=== PATIENT | male | born 1990 | race Caucasian/White ===

== ENCOUNTER 2020-02-03 07:01 | Emergency (ER) | payer OTHER, SELFPAY ==
[2020-02-03 07:11] VITALS: BP 126/73; PULSE 95; RESP 18; TEMP 36.6; O2SAT 100
--- NOTE | 2020-02-03 07:22 | ED.ALLEREA ---
HPI - Allergic Reaction General Chief complaint: Allergic Reaction Stated complaint: allergic reaction - bee sting Time Seen by Provider: 02/03/20 07:05 History of Present Illness HPI narrative: Wasp Sting on his upper back about 30 minutes ago. He has had a small amount of swelling to the area. 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 Usually reacts quickly. Does not feel like this is the same. Related Data Allergies Allergy/AdvReac Type Severity Reaction Status Date / Time bee venom protein (honey bee) Allergy Anaphylaxis Verified 02/03/20 07:18 tamsulosin [From Flomax] Allergy Anaphylaxis Verified 02/03/20 07:18 Review of Systems Review of Systems: All systems reviewed & are unremarkable except as noted in HPI and below PMFSH Past Medical History Medical History (Updated 02/03/20 @ 08:47 by Abdulaziz Daniel MD) Anaphylactic reaction Social History Social History Gender identity (if verbalized by the patient): Male Exam Const: General: healthy appearing, no acute distress and alert Orientation/consciousness: patient oriented x3 HENMT: Head: normal to inspection Neck: Neck: normal visual inspection and no lymphadenopathy Chest: Chest palpation & inspection: no tenderness Resp: Effort & Inspection: normal respiratory effort Auscultation: clear to auscultation bilaterally, no rales, no rhonchi and no wheezes Cardio: Jugular venous distension: no JVD Rate: regular rate Rhythm: regular rhythm Heart sounds: no murmurs Skin: Other: 10 cm area hyperemia and edema with small central puncture. No stinger. No additional rash or wound. Neuro: General: patient oriented x3 and moves all extremities Speech: normal speech Extrem: General: normal to inspection Psych: Appearance: grossly normal and well kempt Affect: normal affect Attitude: cooperative Course Vital Signs Vital signs: Vital Signs Temperature 36.6 C 02/03/20 07:11 Pulse Rate 95 02/03/20 07:11 Respiratory Rate 18 02/03/20 07:11 Blood Pressure 126/73 02/03/20 07:11 Pulse Oximetry 100 02/03/20 07:11 Temperature 36.6 C 02/03/20 07:11 Pulse Rate 59 L 02/03/20 08:51 Respiratory Rate 16 02/03/20 08:51 Blood Pressure 96/65 L 02/03/20 08:51 Pulse Oximetry 98 02/03/20 08:51 MDM - Allergic Reaction MDM Narrative Medical decision making narrative: Symptoms are minimal without rapid progression. I will treat conservatively and observe. Symptoms improving. I will provide a short course of steroids and a new prescription for an epipen. Medical Records Attestation: I reviewed the patient's medical records. Lab Data Attestation: I reviewed the patient's lab results. Discharge Plan Discharge Clinical Impression: Accidental wasp sting Patient Disposition: Home, Self-Care Condition: Stable Instructions: Insect Bite or Sting (ED) Prescriptions: New prednisone 20 mg tablet 20 mg PO DAILY Qty: 4 RF: 0 epinephrine [EpiPen 2-Aramis] 0.3 mg/0.3 mL auto-injector 0.3 mg IM ONCE Qty: 1 RF: 0 Follow-up/Referrals: PHYSICIAN,SEE SUPERVISOR [Primary Care Provider] - Discharge Date/Time: 02/03/20 08:52
[2020-02-03] MEDS: diphenhydrAMINE HCl CAP 25 MG CAPSULE PO (07:50)
[2020-02-03] MEDS: predniSONE 20 MG TABLET PO (07:50)
[2020-02-03 07:51] VITALS: BP 106/70; PULSE 67; RESP 18; O2SAT 97
[2020-02-03 08:28] VITALS: BP 112/80; PULSE 62; RESP 18; O2SAT 98
[2020-02-03 08:51] VITALS: BP 96/65; PULSE 59; RESP 16; O2SAT 98
== END 2020-02-03 08:52 | disposition home or self-care (01) ==
PROVIDERS: Emergency Provider Emergency Medicine
DX: T63.461A Toxic effect of venom of wasps, accidental (unintentional), initial encounter (principal)
CPT/HCPCS: 99283; A9270; J7512